=== PATIENT | male | born 1950 | race Caucasian/White ===

== ENCOUNTER 2021-04-19 16:54 | Outpatient (CLI) | payer MEDICARE, SELFPAY ==
--- NOTE | ~2021-04-19 | XR_ITS ---
EXAMINATION: XR wrist RT min 3V DATE: 04/19/2021 17:24 INDICATION: Right wrist pain. TECHNIQUE: 4 views of right wrist were obtained. COMPARISON: None. FINDINGS: Bone alignment is normal. No fracture. There is moderate osteoarthritis of distal radioulna r joint. There is severe osteoarthritis of radiolunate joint and triscaphe joint and mild osteoarthri tis of first carpometacarpal joint. IMPRESSION: 1. Polyarticular osteoarthritis. Reviewed, dictated and finalized at location A.
--- NOTE | ~2021-04-19 | XR_ITS ---
EXAMINATION: XR wrist LT min 3V DATE: 04/19/2021 17:24 INDICATION: Left wrist pain. TECHNIQUE: 4 views of left wrist were obtained. COMPARISON: None. FINDINGS: Bone alignment is normal. No fracture. There is mild osteoarthritis of distal radioulnar lorenzo int and severe osteoarthritis of first carpometacarpal joint. There is a suture anchor in first proxi mal phalanx. There are loose bodies in first carpometacarpal joint. IMPRESSION: 1. Polyarticular osteoarthritis with loose bodies in first carpometacarpal joint. Reviewed, dictated and finalized at location A. IMPRESSION: 1. Polyarticular osteoarthritis with loose bodies in first carpometacarpal join t.
== END 2021-04-19 16:55 | disposition home or self-care (01) ==
LOC: ANHIMG 17:02
PROVIDERS: PCP Plastic Surgery; Visit Provider Plastic Surgery
DX: M19.031 Primary osteoarthritis, right wrist (principal); M19.032 Primary osteoarthritis, left wrist; M24.032 Loose body in left wrist
CPT/HCPCS: 73110

== ENCOUNTER 2021-05-02 12:26 | Outpatient (CLI) | payer MEDICARE, SELFPAY ==
--- NOTE | ~2021-05-02 | XR_ITS ---
EXAMINATION: XR joint inject/asp add, XR joint inject/asp w image DATE: 05/02/2021 13:34 INDICATION: Osteoarthritis with right wrist pain TECHNIQUE: A time-out was performed to verify the patient's name, date of , and procedure to claudio crowe performed. The procedure including the risks, benefits, and alternatives was discussed with the pat ient. Risks discussed included bleeding and infection. The patient understood the risks and agreed to proceed. The skin overlying the radial aspect of the right carpus was prepped and draped in usual s terile fashion. Attention was first turned to the right wrist joint. Anesthetic was administered with 1% lidocaine subcutaneously over the radioscaphoid articulation. A 25 G needle was advanced under fl uoroscopic guidance into the joint. Injection of 1 mL of Omnipaque 240 confirmed intra-articular posi tion of the needle. Subsequently, injectate consisting of 1 mL of the solution of 6 mg of betamethas one was instilled. Washout of contrast was seen confirming intra-articular administration. The needle was removed and attention turned to the triscaphe joint. Additional subcutaneous 1% lidocaine was ut ilized for local anesthesia. A 20 5G needle was advanced under fluoroscopic guidance into the joint. Injection of 1 mL of Omnipaque 240 was injected confirming intra-articular position of the needle. Garcia bsequently injectate consisting of an additional 1 mm of a solution of 6 mg prednisone was instilled. The needle was removed and sterile bandages applied at the sites of both injections. There were no i mmediate complications. Fluoroscopy exposure time was 0.15 minutes. The total number of images was 4. Total DAP was 0.048 mGycm^2. FINDINGS: Real-time fluoroscopy demonstrates the needle and contrast in the radiocarpal joint. Subseq uent images demonstrate the needle and contrast in the triscaphe joint. Small amount of contrast from the triscaphe joint extends into the midcarpal and first carpal metacarpal joints. Patient's pain pr ior to procedure:3/10. Patient's pain following the procedure: 0/10. IMPRESSION: 1. Successful right radiocarpal joint injection of steroid. 2. Successful right triscaphe joint injection of steroid. Reviewed, dictated and finalized at location A. IMPRESSION: 1. Successful right radiocarpal joint injection of steroid. 2. Successful right triscaphe joint injection of steroid.
== END 2021-05-02 12:27 | disposition home or self-care (01) ==
LOC: ANHIMG 12:32
PROVIDERS: PCP Plastic Surgery; Visit Provider Plastic Surgery
DX: M19.031 Primary osteoarthritis, right wrist (principal)
CPT/HCPCS: 20605; 77002; J0702; Q9966

== ENCOUNTER 2021-06-28 10:14 | Outpatient (CLI) | payer MEDICARE, SELFPAY ==
--- NOTE | 2021-06-28 12:00 | NEURO_ITS ---
Impression: # Complains of pain and numbness of hands, right more than left. # No Carpal Tunnel Syndrome # Bilateral ulnar neuropathy across the elbows, left more than right. # Needle/EMG exam mildly abnormal. # Incidental higher involvement (neck) needs to be ruled out. Nerve Conduction Studies Anti Sensory Summary Table Stim Site NR Peak (ms) P-T Amp (?V) Site1 Site2 Delta-P (ms) Dist (cm) Hermelindo (m/s) Left Median Anti Sensory (2-3nd Digit) Wrist 3.5 37.6 Wrist 2-3nd Digit 3.5 14.0 40 Wrist 3.7 42.8 Wrist 2-3nd Digit 3.5 14.0 40 Right Median Anti Sensory (2-3nd Digit) Wrist 3.4 19.5 Wrist 2-3nd Digit 3.4 14.0 41 Wrist 3.6 12.3 Wrist 2-3nd Digit 3.4 14.0 41 Left Radial Anti Sensory (Base 1st Digit) Wrist 2.3 20.2 Wrist Base 1st Digit 2.3 0.0 Right Radial Anti Sensory (Base 1st Digit) Wrist 2.5 18.2 Wrist Base 1st Digit 2.5 0.0 Left Ulnar Anti Sensory (5th Digit) Wrist 3.6 31.3 Wrist 5th Digit 3.6 14.0 39 Right Ulnar Anti Sensory (5th Digit) Wrist 3.2 27.2 Wrist 5th Digit 3.2 14.0 44 Motor Summary Table Stim Site NR Onset (ms) O-P Amp (mV) Site1 Site2 Delta-0 (ms) Dist (cm) Hermelindo (m/s) Left Median Motor (Abd Poll Brev) Wrist 3.1 2.4 Elbow Wrist 5.4 31.0 57 Elbow 8.5 1.8 Right Median Motor (Abd Poll Brev) Wrist 3.8 5.4 Elbow Wrist 5.1 30.0 59 Elbow 8.9 3.8 Left Ulnar Motor (Abd Dig Minimi) Wrist 2.7 2.5 A Elbow Wrist 6.2 31.0 50 A Elbow 8.9 2.7 B Elbow Wrist 4.6 26.0 57 B Elbow 7.3 2.7 Right Ulnar Motor (Abd Dig Minimi) Wrist 2.7 4.0 A Elbow Wrist 5.7 31.0 54 A Elbow 8.4 2.5 B Elbow Wrist 4.1 23.0 56 B Elbow 6.8 2.4 F Wave Studies NR F-Lat (ms) L-R F-Lat (ms) Left Median (Mrkrs) (Abd Poll Brev) 30.16 0.70 Right Median (Mrkrs) (Abd Poll Brev) 30.86 0.70 Left Ulnar (Mrkrs) (Abd Dig Min) 30.95 0.82 Right Ulnar (Mrkrs) (Abd Dig Min) 31.77 0.82 EMG Side Muscle Nerve Root Ins Act Fibs Amp Dur Recrt Comment Right 1stDorInt Ulnar C8-T1 Nml Nml Nml >12ms Nml Right Ext Indicis Radial (Post Int) C7-8 Nml Nml Nml Nml Nml Right Ext Digitorum Radial (Post Int) C7-8 Nml Nml Nml Nml Nml Right BrachioRad Radial C5-6 Nml Nml Nml Nml Nml Right PronatorTeres Median C6-7 Nml Nml Nml Nml Nml Right Abd Poll Brev Median C8-T1 Nml Nml Nml Nml Nml Left 1stDorInt Ulnar C8-T1 Nml Nml Nml >12ms Nml Left Ext Indicis Radial (Post Int) C7-8 Nml Nml Nml Nml Nml Left Ext Digitorum Radial (Post Int) C7-8 Nml Nml Nml Nml Nml Left BrachioRad Radial C5-6 Nml Nml Nml Nml Nml Left PronatorTeres Median C6-7 Nml Nml Nml Nml Nml Left Abd Poll Brev Median C8-T1 Nml Nml Nml Nml Nml Right ABD Dig Min Ulnar C8-T1 Nml Nml Nml >12ms Nml Left ABD Dig Min Ulnar C8-T1 Nml Nml Nml >12ms Nml Right Biceps Musculocut C5-6 Nml Nml Nml Nml Nml Right Triceps Radial C6-7-8 Nml Nml Nml Nml Nml Right Deltoid Axillary C5-6 Nml Nml Nml Nml Nml Left Biceps Musculocut C5-6 Nml Nml Nml Nml Nml Left Triceps Radial C6-7-8 Nml Nml Nml Nml Nml Left Deltoid Axillary C5-6 Nml Nml Nml Nml Nml MTDD
== END 2021-06-28 10:15 | disposition home or self-care (01) ==
LOC: ANHNEURO 10:15
PROVIDERS: PCP Family Medicine; Visit Provider Plastic Surgery
DX: R53.1 Weakness (principal); R20.0 Anesthesia of skin; G56.23 Lesion of ulnar nerve, bilateral upper limbs; R94.131 Abnormal electromyogram [EMG]
CPT/HCPCS: 95886; 95911

== ENCOUNTER 2022-07-27 08:04 | Outpatient (CLI) | payer MEDICARE, SELFPAY ==
--- NOTE | ~2022-07-27 | US_ITS ---
EXAMINATION: US aorta [facility] DATE: 07/27/2022 09:00 INDICATION: Encounter for screening for cardiovascular disorder, prior tobacco use TECHNIQUE: Grayscale, color Doppler, and pulsed Doppler images of the aorta and common iliac arteries were obtained. COMPARISON: 01/19/2011 FINDINGS: Maximum vascular dimensions are as follows: Proximal aorta: 1.6 cm Mid aorta: 1.7 cm Distal aorta: 1.9 cm Right common iliac artery: 1.5 cm Left common iliac artery: 1.3 cm There is no evidence of abdominal aortic aneurysm. IMPRESSION: 1. No sonographic evidence of abdominal aortic aneurysm. Reviewed, dictated and finalized at location B. ILE MACHINE OPERATOR
== END 2022-07-27 08:05 | disposition home or self-care (01) ==
PROVIDERS: PCP Family Medicine; Visit Provider Physician Assistant
DX: Z13.6 Encounter for screening for cardiovascular disorders (principal)
CPT/HCPCS: 76706

== ENCOUNTER 2023-06-07 05:56 | Day surgery (SDC) | payer MEDICARE, SELFPAY ==
[2023-06-07 06:30] VITALS: BMI 23.8
[2023-06-07 06:32] VITALS: BP 155/90; PULSE 78; RESP 18; TEMP 36.9; O2SAT 99
--- NOTE | 2023-06-07 07:10 | WPDANESEPPF ---
Anes - Initial Pre Proc Eval Procedure: Operation Date: 06/07/23 07:30 Proposed Procedures p Diagnostic Colonoscopy - Adithya De La Torre MD Date/Time: 06/07/23 07:10 Surgeon: Adithya De La Torre MD Pre Op Diagnosis: Other fecal abnormalities Patient Data Age: 73 Gender: M Height: 1.83 m Weight: 79.8 kg Last Vital Signs Temp 36.9 C 06/07/23 06:32 Pulse 78 06/07/23 06:32 Resp 18 06/07/23 06:32 BP 155/90 H 06/07/23 06:32 Pulse Ox 99 06/07/23 06:32 O2 Del Method Room Air 06/07/23 06:32 Allergies Allergy/AdvReac Type Severity Reaction Status Date / Time Sulfa (Sulfonamide Allergy Unknown Unknown Verified 06/07/23 06:22 Antibiotics) finasteride AdvReac Severe nose Verified 06/07/23 06:22 bleeds Home Medications Medication Instructions Recorded Confirmed Type rosuvastatin 10 mg tablet See Rx Instructions .Route 10/12/22 05/23/23 Rx .COMPLEX #90 tabs sodium,potassium,mag sulfates 17.5 See Rx Instructions PO .COMPLEX 02/20/23 05/23/23 Rx gram-3.13 gram-1.6 gram oral soln #354 mL (Suprep Bowel Prep Kit) tamsulosin 0.4 mg capsule See Rx Instructions .Route 03/30/23 05/23/23 Rx .COMPLEX #180 caps vitamin B complex 1 cap PO DAILY 05/23/23 05/23/23 History Patient hx anesthesia problems: none Family hx anesthesia problems: none Results Review: All pre-operative results and documents have been reviewed as part of the pre-operative evaluation. [facility] Past Medical History Medical History Acute non-recurrent maxillary sinusitis Arthralgia of knee, left Trigger finger (acquired) Surgical History Surgical History H/O knee surgery Right knee H/O wrist surgery Right wrist History of total left knee replacement Family History Family History Father Acute myocardial infarction, Onset Age: 69 Sibling Acute myocardial infarction, Onset Age: 49 Social History Social History Smoking status: Former smoker Alcohol intake: current Drinks per week: 10 Substance use type: does not use Lack of Transportation: No Lack of Food: Never True Current Housing: I Have Housing Concerned About Future Housing: No Difficulty Paying Gas/Electric Bills: No Difficulty Paying for Meds: No Currently Unemployed: No Education: Bachelor's Degree Difficulty w/ Childcare or Family Care: No Living arrangements: with family Spiritual care concerns: No Anes - Eval Final PreProcedure Day of Procedure 06/07/23 07:10 Patient weight: normal Heart: regular rate and rhythm Lungs: clear to auscultation Airway: Mallampati scale class III Neurological: alert and oriented Last oral intake: >/= 8 hours ASA classification: III Emergent: no Anesthetic plan: proceed Anesthesia type and monitoring: general GIVS and standard monitoring Results Review: All pre-operative results and documents have been reviewed as part of the pre-operative evaluation. Informed Consent: The patient's anesthetic plan and its attendant risks and benefits were discussed with the patient/family/POA. Questions were solicited and answers provided to the satisfaction of the patient/family/POA.
[2023-06-07] MEDS: LACTATED RINGERS 1,000 ML 150 ML IV CONT (07:12)
--- NOTE | 2023-06-07 07:36 | PM.HPGS ---
History of Present Illness History of Present Illness Consent: Risks, benefits, and alternatives have been discussed and questions answered. Patient agrees to proceed with procedure. Chief complaint: positive cologuard Narrative: Lorenzo Ward is a 73 year old male presents for EGD. Patient was found to have positive Cologuard test. Patient's current weight appetite and bowel movements are normal. Patient denies abdominal pain. He has had no bleeding. Family history noncontributory. Review of Systems Review of Systems: Review of Systems noncontributory. [facility] Past Medical History Medical History Acute non-recurrent maxillary sinusitis Arthralgia of knee, left Trigger finger (acquired) Surgical History Surgical History H/O knee surgery Right knee H/O wrist surgery Right wrist History of total left knee replacement Family History Family History Father Acute myocardial infarction, Onset Age: 69 Sibling Acute myocardial infarction, Onset Age: 49 Social History Social History Smoking status: Former smoker Alcohol intake: current Drinks per week: 10 Substance use type: does not use Lack of Transportation: No Lack of Food: Never True Current Housing: I Have Housing Concerned About Future Housing: No Difficulty Paying Gas/Electric Bills: No Difficulty Paying for Meds: No Currently Unemployed: No Education: Bachelor's Degree Difficulty w/ Childcare or Family Care: No Living arrangements: with family Spiritual care concerns: No Meds Home Medications and Allergies Home Medications Medication Instructions Recorded Confirmed Type rosuvastatin 10 mg tablet See Rx Instructions .Route 10/12/22 05/23/23 Rx .COMPLEX #90 tabs sodium,potassium,mag sulfates 17.5 See Rx Instructions PO .COMPLEX 02/20/23 05/23/23 Rx gram-3.13 gram-1.6 gram oral soln #354 mL (Suprep Bowel Prep Kit) tamsulosin 0.4 mg capsule See Rx Instructions .Route 03/30/23 05/23/23 Rx .COMPLEX #180 caps vitamin B complex 1 cap PO DAILY 05/23/23 05/23/23 History Allergies Allergy/AdvReac Type Severity Reaction Status Date / Time Sulfa (Sulfonamide Allergy Unknown Unknown Verified 06/07/23 06:22 Antibiotics) finasteride AdvReac Severe nose Verified 06/07/23 06:22 bleeds Vital Signs Vital Signs - 24 hr 06/07/23 06:32 Temperature 98.5 F Pulse Rate 78 Respiratory Rate 18 Blood Pressure 155/90 H Pulse Oximetry 99 Oxygen Delivery Room Air Exam Narrative: Physical exam reveals patient to be alert. Vital signs stable. HEENT are unremarkable. Patient is anicteric. Lungs is are clear to auscultation and percussion is without murmur or extra sounds. Abdomen bowel sounds are present soft nontender with no organomegaly. Digital external rectal exam normal. Assessment and Plan Assessment and plan (1) Positive colorectal cancer screening using Cologuard test: Code(s): R19.5 - Other fecal abnormalities Status: Acute Assessment and Plan: Patient presents for colonoscopy to evaluate positive Cologuard test.
[2023-06-07 07:58] VITALS: BP 97/72; PULSE 72; RESP 16; O2SAT 99
[2023-06-07 08:08] VITALS: BP 137/83; PULSE 59; RESP 14; O2SAT 99
[2023-06-07 08:18] VITALS: BP 134/91; PULSE 63; RESP 15; O2SAT 99
--- NOTE | 2023-06-07 09:14 | WPDANESPN ---
Anes - Prog Note Post-Op Date/Time: 06/07/23 09:14 Cardiovascular status: normal Respiratory status: normal Airway patency: baseline Mental status: baseline Post-Op hydration status: normal Vital Signs: Last Vital Signs Temp 36.9 C 06/07/23 06:32 Pulse 63 06/07/23 08:18 Resp 15 06/07/23 08:18 BP 134/91 H 06/07/23 08:18 Pulse Ox 99 06/07/23 08:18 O2 Del Method Room Air 06/07/23 08:18 Pain Score (VAS): 0 I/O: Intake & Output 06/06/23 06/07/23 06/07/23 23:59 07:59 15:59 Intake Total 600 Balance 600 Patient Feedback: Patient satisfied with anesthetic care.
== END 2023-06-07 08:23 | disposition home or self-care (01) ==
PROVIDERS: PCP Family Medicine; Visit Provider Internal Medicine Gastroenterology
PROC: 0DJD8ZZ Inspection of Lower Intestinal Tract, Via Natural or Artificial Opening Endoscopic (ICD-10-PCS; CPT 45378; principal; 2023-06-07 07:30)
DX: K92.1 Melena (principal); K64.8 Other hemorrhoids
CPT/HCPCS: 45378

== ENCOUNTER 2024-01-29 16:10 | Observation (INO) | payer MEDICARE, SELFPAY ==
[2024-01-29] VITALS (13 sets, daily range): BP systolic 129–157; BP diastolic 82–97; PULSE 69–84; RESP 11–19; TEMP 36.4; O2SAT 97–100
--- NOTE | ~2024-01-29 | XR_ITS ---
EXAMINATION: XR chest 2V Exam Date/Time: 01/29/2024 16:55 CDT HISTORY: chest pain Comparison: None. RESULT: Lines, tubes, and devices: Soft tissue anchors in the right glenoid. Lungs and pleura: Streaky bibasilar scar/atelectasis, otherwise clear. Cardiomediastinal silhouette: Stable. Other: No acute osseous or upper abdominal finding. IMPRESSION: No acute cardiopulmonary process. Reviewed, dictated and finalized at location K.
--- NOTE | 2024-01-29 16:11 | ECG_ITS ---
SEE SCANNED COPY FOR CONFIRMED REPORT MTDD
[2024-01-29] MEDS: ASPIRIN 81 MG CHEWABLE TABLET 324 MG PO (16:39)
[2024-01-29 16:41] LABS: Basophils Percent Auto 0.5 % (0.2-1.2); Eosinophils Absolute Auto 0.2 K/mm3 (0-0.3); Eosinophils Percent Auto 2.6 % (0-4.4); Hematocrit 39.2 % (42.0-52.0); Hemoglobin 13.4 g/dL (14.0-18.0); Immature Granulocyte Absolute 0.04 K/mm3 (0.00-0.031); Immature Granulocyte Percent A 0.7 % (0-0.5); Lymphocytes Absolute Auto 1.34 K/mm3 (0.9-3.2); Mean Corpuscular HGB Conc 34.2 g/dl (32-36); Mean Corpuscular Hemoglobin 34.9 pg (26-34); Mean Corpuscular Volume 102.1 fl (80-100); Mean Platelet Volume 9.7 fl (7.4-10.4); Monocytes Absolute Auto 0.9 K/mm3 (0.1-0.6); Monocytes Percent Auto 15.5 % (2.6-8.5); Neutrophils Absolute Auto 3.6 K/mm3 (1.3-6.7); Neutrophils Percent Auto 58.7 % (45.5-73.1); Platelet Count Result 210 k/mm3 (150-375); Red Blood Count 3.84 M/mm3 (4.6-6.20); Red Cell Distribution Width 13.1 % (11.5-14.5); White Blood Count 6.1 K/mm3 (4.5-10.0)
[2024-01-29] MEDS: NITROGLYCERIN SL 0.4 MG TABLET SUBLINGUAL (16:41)
[2024-01-29 16:52] LABS: Partial Thromboplastin Time 28.5 Seconds (22.3-36.8); Prothrombin Time 14.1 Seconds (11.1-14.7)
--- NOTE | 2024-01-29 16:54 | PC.NURSE ---
1641: Pt given 0.4mg ASA sublingual 1646: Pt given 2nd dose of 0.4mg ASA sublingual after reporting chest pain still present 1651: Pt reports chest pain resolved, EDP made aware
[2024-01-29 16:55] LABS: Alanine Aminotransferase 25 U/L (6-50); Albumin Level 4.6 g/dL (3.5-5.1); Alkaline Phosphatase 72 U/L (38-126); Anion Gap 9 mmol/L (4-12); Aspartate Amino Transferase 42 U/L (17-59); Bilirubin,Total 0.6 mg/dL (0.2-1.3); Blood Urea Nitrogen 17 mg/dL (9-20); Calcium 9.7 mg/dL (8.4-10.2); Carbon Dioxide 28 mmol/L (22-30); Chloride 104 mmol/L (98-107); Estimated CRCL calculation 66 ml/min; Estimated Glomerular Filt Rate > 60; Glucose 101 mg/dL (65-110); Lipase 47 U/L (23-300); Potassium 4.4 mmol/L (3.4-5.0); Sodium 141 mmol/L (137-145)
[2024-01-29 17:11] LABS: Troponin I 0.417 ng/mL (0.000-0.034)
[2024-01-29] MEDS: NITROGLYCERIN OINTMENT 1 INCH DOSE TRANSDERM ×2 (17:24→23:36)
--- NOTE | 2024-01-29 17:38 | ED.GENADULT ---
HPI - General Adult General Chief complaint: Chest Pain Stated complaint: chest pain Time Seen by Provider: 01/29/24 16:29 History of Present Illness HPI narrative: this 73-year-old gentleman who presents emergency department with chief complaint of chest pain. Patient reports that several days ago he had discomfort started in the left side of his chest radiated to his left arm. He patient reports the pain went away and reports that whenever he exerts himself self he has been having discomfort as well. The patient reports he has had a stress test in the past was negative reports that today he started having discomfort again and was still continuing but not as bad as it was. The patient does report that he has family history for cardiac disease Related Data Home Medications Medication Instructions Recorded Confirmed vitamin B complex 1 cap PO DAILY 05/23/23 07/19/23 Allergies Allergy/AdvReac Type Severity Reaction Status Date / Time Sulfa (Sulfonamide Allergy Unknown Unknown Verified 01/29/24 16:35 Antibiotics) finasteride AdvReac Severe nose Verified 01/29/24 16:35 bleeds Review of Systems Review of Systems: A 10 system review of systems was completed on the patient and is negative except for what is stated in the HPI. Nursing and ancillary documentation was reviewed. [facility] Past Medical History Medical History Acute non-recurrent maxillary sinusitis Arthralgia of knee, left Trigger finger (acquired) Surgical History Surgical History H/O knee surgery Right knee H/O wrist surgery Right wrist History of total right knee replacement Family History Family History Father Acute myocardial infarction, Onset Age: 69 Sibling Acute myocardial infarction, Onset Age: 49 Social History Social History Smoking status: Former smoker Alcohol intake: current Drinks per week: 10 Substance use: never Substance use type: does not use Lack of Transportation: No Lack of Food: Never True Current Housing: I Have Housing Concerned About Future Housing: No Difficulty Paying Gas/Electric Bills: No Difficulty Paying for Meds: No Currently Unemployed: No Education: Bachelor's Degree Difficulty w/ Childcare or Family Care: No Living arrangements: with family Spiritual care concerns: No Exam Narrative: GENERAL: Well-appearing, well-nourished, and in no acute distress. HEAD: Normocephalic, atraumatic. EYES: PERRLA and EOMI. ENT: Nares clear, no rhinorrhea or epistaxis. Mucous membranes moist. NECK: Supple. CHEST: Clear to auscultation. No respiratory distress. HEART: Regular rate and rhythm. No murmur heard. Normal peripheral pulses. ABDOMEN: Soft, nontender, nondistended, normal active bowel sounds. EXTREMITIES: Normal range of motion. No edema. SKIN: Warm, dry, no rash. NEURO: No focal deficits. Alert and oriented x3. PSYCH: Normal mood and affect. Course Vital Signs Vital signs: Vital Signs Temperature 36.4 C 01/29/24 16:20 Pulse Rate 77 01/29/24 16:20 Respiratory Rate 16 01/29/24 16:20 Blood Pressure 146/87 H 01/29/24 16:20 Pulse Oximetry 100 01/29/24 16:20 Oxygen Delivery Room Air 01/29/24 16:20 Temperature 36.4 C 01/29/24 16:24 Pulse Rate 76 01/29/24 16:51 Respiratory Rate 19 01/29/24 16:51 Blood Pressure 129/83 01/29/24 16:51 Pulse Oximetry 97 01/29/24 16:51 Oxygen Delivery Room Air 01/29/24 16:30 Medical Decision Making [facility] Narrative Medical decision making narrative: differential diagnosis includes ACS, STEMI, NSTEMI, noncardiac chest pain EKG showed ST depression present in leads 1 to and V4 through V6 there was less than half a mm e
[2024-01-29] MEDS: HEPARIN SOD/D5W 100 UNITS/ML 25,000 UNITS/250 ML BAG 10 UNITS IV CONT (17:50)
[2024-01-29] MEDS: HEPARIN SODIUM 5,000 UNITS/ML VIAL 4000 UNITS IV PUSH (17:52)
[2024-01-29 17:58] LABS: Basophils Percent Auto 0.6 % (0.2-1.2); Eosinophils Absolute Auto 0.1 K/mm3 (0-0.3); Eosinophils Percent Auto 2.2 % (0-4.4); Hematocrit 36.4 % (42.0-52.0); Hemoglobin 12.4 g/dL (14.0-18.0); Immature Granulocyte Absolute 0.03 K/mm3 (0.00-0.031); Immature Granulocyte Percent A 0.6 % (0-0.5); Lymphocytes Absolute Auto 1.27 K/mm3 (0.9-3.2); Lymphocytes Percent Auto 23.7 % (18.3-44.2); Mean Corpuscular HGB Conc 34.1 g/dl (32-36); Mean Corpuscular Volume 102.8 fl (80-100); Mean Platelet Volume 9.9 fl (7.4-10.4); Monocytes Absolute Auto 0.8 K/mm3 (0.1-0.6); Monocytes Percent Auto 14.4 % (2.6-8.5); Neutrophils Absolute Auto 3.1 K/mm3 (1.3-6.7); Neutrophils Percent Auto 58.5 % (45.5-73.1); Platelet Count Result 204 k/mm3 (150-375); Red Blood Count 3.54 M/mm3 (4.6-6.20); White Blood Count 5.4 K/mm3 (4.5-10.0)
[2024-01-29 18:18] LABS: Prothrombin Time 14.2 Seconds (11.1-14.7)
[2024-01-29 18:19] LABS: Partial Thromboplastin Time 28.2 Seconds (22.3-36.8)
--- NOTE | 2024-01-29 19:09 | ADMGEN ---
This patient, Lorenzo Ward, was admitted to IMU Room 210-01. Patient/family oriented to hospital policies and general routines including ID bracelet, bed and alarms, visiting hours, pain management, procedures, bathroom and other care routines, personal items, smoking policy, room service/diet, and visiting hours. Information on how to activate the Rapid Response Team has been discussed. Patient/Family are encouraged to report perceived risks to care and to ask questions if they do not understand what they are told or what they should do.
[2024-01-29 20:35] LABS: Troponin I 0.644 ng/mL (0.000-0.034)
--- NOTE | 2024-01-29 22:30 | PM.IMHP ---
H&P: HPI History of Present Illness Date/Time: 01/29/24 21:00 Chief Complaint: Chest pain. Narrative: This is a very pleasant, active, and quite healthy 73-year-old gentleman who presented to the emergency department via private vehicle for evaluation of chest pain. He is a patient of Dr. Peña Pryor and saw him for a yearly follow-up earlier this month. Blood pressures were noted to be elevated and are being monitored for now. The patient is on rosuvastatin for findings of coronary artery calcifications and atherosclerotic calcifications of the aorta which were seen on a CT scan in April 2010. He has a strong family history for coronary artery disease; brother at age 45 of an IN and dad at age 59 of an IN. He has had 2 or 3 stress tests over the years, the last being more than 7 years ago, and they have been normal. He has never experienced chest pain before this weekend. While outside cutting grass he developed left-sided chest pain radiating into the shoulder associated with shortness of breath and lightheadedness while mowing with a self-propelled push lawnmower. Symptoms resolved with rest but seem to occur shortly after starting tomorrow again. It took him about 2 hours to mow the lawn which is a lot longer than usual and when he was finished he went inside to rest and did not do much with the rest of the day. He had not had any recurrent issues until today when he was cleaning off his pool cover. Once again the symptoms resolved with rest and he came in for evaluation. He denies nausea, vomiting, sweats, syncope, near syncope, pleuritic pain, palpitations, sensations of racing heart, edema, and calf pain. In the ED: Blood pressure was 146/87 on arrival. He is in a sinus rhythm. EKG shows ST depressions in 1, 2, and V4 through 6. Initial troponin was 0.417. CBC showed a mild macrocytic anemia and the rest of his labs were really unremarkable. Chest x-ray showed no acute cardiopulmonary disease. He was given aspirin 324 mg, 2 sublingual nitroglycerin, and he has been started on a heparin drip. He is being admitted in this setting for close monitoring and Cardiology consultation. Review of Systems Review of Systems: 12 systems were reviewed and are negative except for as per HPI. [facility] Past Medical History Medical History (Updated 01/29/24 @ 22:48 by Yahaira Collins PA-C) Atherosclerotic heart disease of [place] coronary artery with unspecified angina pectoris Benign prostatic hyperplasia Vitamin B12 deficiency Surgical History Surgical History (Updated 01/29/24 @ 22:46 by Yahaira Collins PA-C) History of arthroscopy of both knees History of arthroscopy of both shoulders History of total right knee replacement Family History Family History Father Acute myocardial infarction, Onset Age: 69 Sibling Acute myocardial infarction, Onset Age: 49 Social History Social History (Updated 01/29/24 @ 22:46 by Yahaira Collins PA-C) Social History: Surrogate medical decision maker: Yesenia Ward, spouse. Code status: Full code. Smoking status: Former smoker Alcohol intake: current Drinks per week: 14 Substance use: never Substance use type: does not use Do You Feel Safe in your Home?: Yes Lack of Transportation: No Lack of Food: Never True Current Housing: I Have Housing Concerned About Future Housing: No Difficulty Paying Gas/Electric Bills: No Difficulty Paying for Meds: No Currently Unemployed: No Education: Bachelor's Degree Difficulty w/ Childcare or Family Care: No Living arrangements: with family Occupation/Education: retired Spiritual care concerns: No Meds Home Medications and Allergies Home Medications Medication Instructions Recorded Confirmed Type vitamin B complex 1 cap PO DAILY 05/23/23 01/29/24 History rosuvastatin 10 mg tablet 10 mg PO QHS 01/29/24 01/29/24
[2024-01-29] MEDS: ALPRAZolam (*CRX) 0.25 MG TABLET PO (22:45)
[2024-01-29] MEDS: ROSUVASTATIN 10 MG TABLET PO (23:36)
[2024-01-29] MEDS: METOPROLOL TARTRATE 25 MG TABLET PO (23:36)
[2024-01-30] VITALS (19 sets, daily range): BP systolic 109–166; BP diastolic 66–92; PULSE 62–81; RESP 12–18; TEMP 36.1–36.4; O2SAT 97–100
--- NOTE | 2024-01-30 | ECHO_ITS ---
Patient Info Name: Lorenzo Ward Age: 73 years : 1950 Gender: Male Ht: 72 in Wt: 185 lbs BSA: 2.07 m2 HR: 72 bpm BP: 109 / 73 mmHg Heart Rhythm: Sinus Rhythm Technical Quality: Fair Exam Date: 01/30/2024 2:38 PM Exam Location: Echo Lab Patient Status: Inpatient Admit Date: 01/29/2024 Staff Ordering Physician: Abilio Camp MD (kaiser/laci) Ash Collector: Aubree Ornelas RDCS Attending Provider: Elizabeth Mejia MD Referring Physician: Conrado AZUL; Exam Type: CA echo dop color flow w con Study Info Indications I21.4 - Non-ST elevation (NSTEMI) myocardial infarction Complete two-dimensional, color flow and Doppler transthoracic echocardiogram is performed with contrast to opacify the left ventricle and to improve the deliniation of the left ventricle endocardial borders. Contrast/Agitated Saline Contrast/Ag. Saline: Definity Amount: 1.00 ml IV Access Condition: patent with no signs of infiltration Summary 1. Left ventricular chamber dimension is normal. 2. Left ventricular systolic function is normal, estimated at 60-65%. 3. There is hypokinesis of the inferoseptum, anteroseptum. 4. The left ventricular diastolic function is grade I diastolic dysfunction. 5. Right ventricular systolic function is normal. 6. No significant valvular disease. Left Ventricle There is hypokinesis of the inferoseptum, anteroseptum. Left ventricular chamber dimension is normal. Left ventricular systolic function is normal, estimated at 60-65%. There is no increased left ventricular wall thickness. The left ventricular diastolic function is grade I diastolic dysfunction. Right Ventricle Right ventricular chamber dimension is normal. Right ventricular systolic function is normal. Left Atria Left atrial chamber dimension is normal. Right Atria Right atrial chamber dimension is normal. Atrial Septum Intact interatrial septum visualized by color flow imaging. Aortic Valve The aortic valve is probable trileaflet. There is no aortic valve stenosis. There is no aortic valve regurgitation. Pulmonic Valve The pulmonic valve is not well visualized. There is trace pulmonic regurgitation. Mitral Valve There is trace mitral valve regurgitation. Tricuspid Valve There is trace tricuspid valve regurgitation. Pericardium/Pleural There is no pericardial effusion. Inferior Vena Cava Normal inferior vena cava with >50% collapse upon inspiration consistent with normal right atrial pressure, 3 mmHg. Aorta The aortic root size at the sinus of Valsalva is normal. Tricuspid Valve Name Value Normal Estimated PAP/RSVP RA Pressure 3 mmHg <=5 Report Signatures Amended by Abilio Camp MD on 01/30/2024 16:39
[2024-01-30 00:36] LABS: Partial Thromboplastin Time 77.9 Seconds (22.3-36.8)
[2024-01-30 00:51] LABS: Iron 142 ug/dL (49-181); Percent Iron Saturation 43 % (20-50)
[2024-01-30 01:55] LABS: Folic Acid 19.2 ng/mL (2.76->20)
[2024-01-30 06:00] LABS: Basophils Percent Auto 0.9 % (0.2-1.2); Eosinophils Absolute Auto 0.2 K/mm3 (0-0.3); Eosinophils Percent Auto 6.5 % (0-4.4); Hemoglobin 12.2 g/dL (14.0-18.0); Immature Granulocyte Absolute 0.02 K/mm3 (0.00-0.031); Immature Granulocyte Percent A 0.6 % (0-0.5); Lymphocytes Percent Auto 35.2 % (18.3-44.2); Mean Corpuscular HGB Conc 33.9 g/dl (32-36); Mean Corpuscular Hemoglobin 34.7 pg (26-34); Mean Corpuscular Volume 102.3 fl (80-100); Mean Platelet Volume 9.7 fl (7.4-10.4); Monocytes Absolute Auto 0.6 K/mm3 (0.1-0.6); Monocytes Percent Auto 18.5 % (2.6-8.5); Neutrophils Absolute Auto 1.3 K/mm3 (1.3-6.7); Neutrophils Percent Auto 38.3 % (45.5-73.1); Platelet Count Result 177 k/mm3 (150-375); Red Blood Count 3.52 M/mm3 (4.6-6.20); Red Cell Distribution Width 13.2 % (11.5-14.5); White Blood Count 3.4 K/mm3 (4.5-10.0)
[2024-01-30] MEDS: NITROGLYCERIN OINTMENT 1 INCH DOSE TRANSDERM (06:07)
[2024-01-30 06:09] LABS: Anion Gap 9 mmol/L (4-12); Blood Urea Nitrogen 20 mg/dL (9-20); Carbon Dioxide 24 mmol/L (22-30); Chloride 108 mmol/L (98-107); Cholesterol 157 mg/dL (0-200); Estimated CRCL calculation 81 ml/min; Estimated Glomerular Filt Rate > 60; Glucose 99 mg/dL (65-110); HDL Direct 61 mg/dL; Magnesium 1.9 mg/dL (1.6-2.3); Potassium 3.8 mmol/L (3.4-5.0); Sodium 141 mmol/L (137-145); Triglycerides 95 mg/dL (<150)
[2024-01-30 06:14] LABS: Partial Thromboplastin Time 80.7 Seconds (22.3-36.8)
[2024-01-30 06:20] LABS: LDL Cholesterol Direct 85 mg/dL
--- NOTE | 2024-01-30 09:58 | PM.CNCAR ---
Assessment and Plan Assessment and plan (1) Acute non-ST elevation myocardial infarction (NSTEMI): Code(s): I21.4 - Non-ST elevation (NSTEMI) myocardial infarction Status: Acute Assessment and Plan: Recommend cardiac catheterization. Discussed procedure with the patient, including indication for the procedure, procedure details, risks vs benefits, alternative management options, etc. Patient agreeable to [facility]. Will plan on [facility] today. Continue Heparin drip, ASA 81mg once daily. Has been started on Metoprolol, continue. I will increase his Rosuvastatin from 10mg to 40mg. Further recommendations and plan pending results of [facility]. (2) Dyslipidemia: Code(s): E78.5 - Hyperlipidemia, unspecified Status: Acute Assessment and Plan: LDL 85. I will increase his Rosuvastatin from 10mg to 40mg. History of Present Illness History of Present Illness Consult date/time: 01/30/24 09:58 Requesting physician: Yahaira Collins PA-C Consult reason: Other (NSTEMI) Reason For Visit: NSTEMI,Chest Pain Narrative: This is a 73 year old male with hyperlipidemia who presented with chest pain. Patient reports he had an episode of left-sided chest pain with radiation to his left arm about 2 weeks ago while mowing his lawn. Chest pain at that time lasted for a while (he cannot recall exactly how long). Had shortness of breath with exertion. He is normally able to mow his lawn in 45 minutes, but it took him almost 2 hours to complete it at that time. Chest pain then resolved, however, he had recurrence of similar chest pain yesterday while cleaning his pool cover. Did not last as long as the episode 2 weeks ago. Currently chest pain free. Patient has known family history of heart disease. Brother from [place] at age 45. Father from [place] at age 59. Previous stress tests have been normal, but those were several years ago. EKG shows sinus rhythm, nonspecific STTW abnormality. Troponins of 0.417, 0.644, 0.820. CXR negative. He has been started on Heparin drip. Review of Systems Review of Systems: All systems reviewed & are unremarkable except as noted in HPI and below (HPI) [facility] Past Medical History Medical History Atherosclerotic heart disease of [place] coronary artery with unspecified angina pectoris Benign prostatic hyperplasia Vitamin B12 deficiency Surgical History Surgical History History of arthroscopy of both knees History of arthroscopy of both shoulders History of total right knee replacement Family History Family History Father Acute myocardial infarction, Onset Age: 69 Sibling Acute myocardial infarction, Onset Age: 49 Social History Social History Social History: Surrogate medical decision maker: Yesenia Ward, spouse. Code status: Full code. Smoking status: Former smoker Alcohol intake: current Drinks per week: 14 Substance use: never Substance use type: does not use Do You Feel Safe in your Home?: Yes Lack of Transportation: No Lack of Food: Never True Current Housing: I Have Housing Concerned About Future Housing: No Difficulty Paying Gas/Electric Bills: No Difficulty Paying for Meds: No Currently Unemployed: No Education: Bachelor's Degree Difficulty w/ Childcare or Family Care: No Living arrangements: with family Occupation/Education: retired Spiritual care concerns: No Meds Home Medications and Allergies Home Medications Medication Instructions Recorded Confirmed Type vitamin B complex 1 cap PO DAILY 05/23/23 01/29/24 History rosuvastatin 10 mg tablet 10 mg PO QHS 01/29/24 01/29/24 History tamsulosin 0.4 mg capsule 0.04 mg PO BID 01/29/24 01/29/24 History Allergies Allergy/AdvReac Type Severity Reaction Status Da
--- NOTE | 2024-01-30 11:27 | WPDMODSED ---
Moderate Sedation Note-Pt Data Patient Data Diagnosis: NSTEMI Present Complaint: NSTEMI Procedure to be performed/Plan: Coronary angiography, left heart cath, +/- PCI Allergies Allergy/AdvReac Type Severity Reaction Status Date / Time Sulfa (Sulfonamide Allergy Unknown Unknown Verified 01/29/24 16:35 Antibiotics) finasteride AdvReac Severe nose Verified 01/29/24 16:35 bleeds Home Medications Medication Instructions Recorded Confirmed Type vitamin B complex 1 cap PO DAILY 05/23/23 01/29/24 History rosuvastatin 10 mg tablet 10 mg PO QHS 01/29/24 01/29/24 History tamsulosin 0.4 mg capsule 0.04 mg PO BID 01/29/24 01/29/24 History Current Medications: Active Medications Aspirin (Aspirin 81 Mg Chewable Tablet) 81 mg PO DAILY@0800 [facility] Heparin Sodium (Porcine) (Heparin Sodium 5,000 Units/Ml Vial) 4,000 units IV PUSH PRN PRN PRN Reason: aPTT less than 55 seconds Heparin Sodium (Porcine) (Heparin Sodium 5,000 Units/Ml Vial) 3,500 units IV PUSH PRN PRN PRN Reason: aPTT 55 - 70 seconds Heparin Sodium/Dextrose (Heparin Sodium/D5w 100 Units/Ml) 25,000 units in 250 mls @ 10 mls/hr IV CONT .Q24H [facility]; Protocol Last Titration: 01/30/24 00:55 Dose: 1,000 units/hr, 10 mls/hr Metoprolol Tartrate (Metoprolol Tartrate 25 Mg Tablet) 25 mg PO Q12HR [facility] Last Admin: 01/29/24 23:36 Dose: 25 mg Morphine Sulfate (Morphine Sulfate (*Crx) 2 Mg/Ml Inj) 2 mg IV PUSH Q5M PRN PRN Reason: Pain Rated 4-6 Nitroglycerin (Nitroglycerin Ointment 1 Inch Dose) 1 inch TRANSDERM Q6HR [facility] Last Admin: 01/30/24 06:07 Dose: 1 inch Nitroglycerin (Nitroglycerin Sl 0.4 Mg Tablet) 0.4 mg SUBLINGUAL Q5MIN PRN PRN Reason: Chest Pain Rosuvastatin Calcium (Rosuvastatin 20 Mg Tablet) 40 mg PO QAM [facility] Tamsulosin HCl (Tamsulosin Hcl 0.4 Mg Capsule) 0.4 mg PO BID [facility] Vitamin B Complex (Vitamin B Complex Capsule) 1 cap PO DAILY LEONARDO Sedation/Anesthesia: No previous sedation/anesthesia problems (including family history). [facility] Past Medical History Medical History Atherosclerotic heart disease of [place] coronary artery with unspecified angina pectoris Benign prostatic hyperplasia Vitamin B12 deficiency Surgical History Surgical History History of arthroscopy of both knees History of arthroscopy of both shoulders History of total right knee replacement Family History Family History Father Acute myocardial infarction, Onset Age: 69 Sibling Acute myocardial infarction, Onset Age: 49 Social History Social History Social History: Surrogate medical decision maker: Yesenia Ward, spouse. Code status: Full code. Smoking status: Former smoker Alcohol intake: current Drinks per week: 14 Substance use: never Substance use type: does not use Do You Feel Safe in your Home?: Yes Lack of Transportation: No Lack of Food: Never True Current Housing: I Have Housing Concerned About Future Housing: No Difficulty Paying Gas/Electric Bills: No Difficulty Paying for Meds: No Currently Unemployed: No Education: Bachelor's Degree Difficulty w/ Childcare or Family Care: No Living arrangements: with family Occupation/Education: retired Spiritual care concerns: No Mod Sed Physical Exam Physical Exam Pre Procedural Exam: Normal: Appearance, Lungs, Heart Rate, Heart Rhythm, Neuro Exam, Abdomen, Extremities and Skin Hours since solid foods: 12 Hours since liquid intake: 8 Mallampati Classification: class II Internal Medicine - PN: Obj Da Vital Signs Vital Signs: Vital Signs - 24 hr 01/29/24 16:20 01/29/24 16:24 01/29/24 16:30 Temperature 36.4 C 36.4 C Pulse Rate 77 79 Respiratory Rate 16 15 Blood Pressure 146/87 H 145/97 H Pulse Oximetry 100 98 100 Oxygen Delivery Room
[2024-01-30 11:38] LABS: Hemoglobin A1C 5.1 % (<5.7)
--- NOTE | 2024-01-30 13:11 | WPDCARDPROC ---
Cardiac Cath Procedure Note Date of procedure:: 01/30/24 Performing physician:: CATHETERIZATION LABORATORY REPORT Procedure Date: 01/30/2024 Workers' Compensation Hearings Officer: Abilio Camp M.D., [facility]? Referring Physician: Abilio Camp M.D. ? Anesthesia: Versed and Fentanyl were ordered and given in my presence at 11:57, procedure ended at 12:44. Supervision of nurse monitored moderate sedation with Versed and Fentanyl was provided for 45 minutes. Total of Versed 1mg and Fentanyl 50mcg were administered by the Coiled Tubing Supervisor RN Princess Alcala. Pre-op Diagnosis: Coronary artery disease Post-op Diagnosis: 1. Significant two-vessel coronary artery disease involving the ostial LAD and proximal RCA. 2. Elevated left ventricular end-diastolic pressure of 23mmHg. Procedure(s): 1. Moderate sedation 2. Ultrasound-guided access of the right radial artery 3. Coronary angiography 4. Left heart cath 5. IVUS of the left main Access Site: Right radial artery Brief History and Clinical Indications: Patient is a 73 year old male with hyperlipidemia, family history of premature coronary artery disease, former smoker (quit 40 years ago) who is referred for [facility] for NSTEMI. All risks, benefits and alternatives to left heart catheterization with or without percutaneous coronary intervention was discussed at length with the patient. Risk of complications including but not limited to bleeding, infection, arrhythmia, stroke, worsening kidney function, blood loss, groin hematoma, limb loss, emergency coronary artery bypass grafting, and even were discussed with the patient and all questions were answered. The patient understood and wished to proceed. Time out called, patient name, date of , medical record number, allergies, procedure performed, identify Workers' Compensation Hearings Officer, patient and staff member concurred with accurate data, procedure carried on. Findings: LEFT HEART CATHETERIZATION FINDINGS: 1. Left main: The left main trifurcates into LAD, Ramus and LCX. Eccentric disease noted in the distal left main. IVUS shows the distal left main MLA is 10mm2. 2. Left anterior descending: The proximal-mid LAD is heavily calcified. The ostial LAD has significant obstructive hazy disease. 3. Ramus: Small caliber. No obstructive disease appreciated. 4. Left circumflex: The ostium of the LCX has angiographically moderate disease. Obtuse marginal branches have luminal irregularities. 5. Right coronary artery: The RCA is the dominant vessel. The RCA is a heavily calcified vessel. The proximal RCA has a calcific subtotal 99% stenosis. 6. Left ventricle: A. End-diastolic pressure 23 mmHg. B. LV gram deferred. C. No significant gradient across aortic valve on catheter pullback. Description of Procedure: Informed consent signed and placed in the chart. Patient transferred to labor utilization superintendent room. Prepped and draped in usual sterile fashion. 2% lidocaine injected subcutaneously in right wrist area. 22-gauge venipuncture catheter used to access the right radial artery under ultrasound guidance. 6-FR slender sheath placed in right radial artery. Nitroglycerine and Verapamil were given intraarterial through the sheath. Versacore wire advanced under fluoroscopy 5F Tig 4 diagnostic catheter engaged Left Main Coronary Artery. The Tig catheter kept engaging in the conus branch of RCA. Therefore, 5F FR 4 diagnostic catheter engaged in the Right Coronary Artery Multiple orthogonal angiogram obtained and reviewed 5F Pigtail diagnostic catheter crossed aortic valve to obtain LVEDP, LV angiogram deferred. Decided to IVUS the left main to better assess the extent of the distal left main disease. Angiomax bolus given. 6F CLS 3.0 guide catheter was used to intubate the left main. Initially attempted to pass 0.014 [place] coronary wire into the LAD, however, had difficulty crossing into the LAD, therefore, wire passed down the Ramus. IVUS catheter advanced, distal left main MLA is
[2024-01-30] MEDS: PERFLUTREN LIPID MICROSPHERES 1.5 ML VIAL DILUTED TO 10 ML TOTAL VOLUME IV PUSH (15:15)
--- NOTE | 2024-01-30 15:28 | IVDEFINITY ---
Prior to administration of IV Definity the patient was educated on the risks and benefits of the imaging enhancing agent including potential adverse side effects. The patient verbalized understanding. Allergies were verified. No exclusion criteria were identified and at least one of the following inclusion criteria were met: 1) physician request, 2) patient technically difficult to image (per the [place] [employer]chocardi[employer] guidelines of two or more segments not discernable within the apical view), or 3) questionable left ventricular function. ?
--- NOTE | 2024-01-30 15:40 | PM.DS ---
DS: Admitting Diagnosis Discharge Date 01/30/2024 Admitting Diagnosis Chest pain DS: Discharge Diagnosis Discharge Diagnosis (1) Non-ST elevation myocardial infarction (NSTEMI): Code(s): I21.4 - Non-ST elevation (NSTEMI) myocardial infarction Status: Acute Assessment and Plan: Pt on iv heparin drip Npo for heart cath today Pt will need to be transferred to [facility] for higher level of care for multivessel disease. (2) Elevated blood pressure reading: Code(s): R03.0 - Elevated blood-pressure reading, without diagnosis of hypertension Status: Acute (3) Macrocytic anemia: Code(s): D53.9 - Nutritional anemia, unspecified Status: Acute (4) Benign prostatic hyperplasia: Code(s): N40.0 - Benign prostatic hyperplasia without lower urinary tract symptoms Status: Acute DS: Summary Hospital Course Hospital Course: The patient presented to the emergency department for evaluation of left-sided chest pain with activity as detailed in HPI. Labs, imaging, EKG, and all reports were personally reviewed. He has exertional angina with elevated troponins and ischemic changes on EKG consistent with non STEMI. He received aspirin 324 mg in the ED and has been started on a heparin drip. He will be NPO after midnight for probable cardiac catheterization tomorrow. Start metoprolol tartrate 25 mg. Monitor blood pressures closely; may very well started antihypertensive depending on how he trends. Continue statin. Check iron studies, B12, and folate for evaluation of macrocytic anemia; he previously had a history of B12 deficiency. Continue tamsulosin and monitor p.r.n. bladder scan. Pt had heart cath next day showing . Left main: The left main trifurcates into LAD, Ramus and LCX. Eccentric disease noted in the distal left main. IVUS shows the distal left main MLA is 10mm2.? 2. Left anterior descending: The proximal-mid LAD is heavily calcified. The ostial LAD has significant obstructive hazy disease. 3. Ramus: Small caliber. No obstructive disease appreciated. 4. Left circumflex: The ostium of the LCX has angiographically moderate disease. Obtuse marginal branches have luminal irregularities. 5. Right coronary artery: The RCA is the dominant vessel. The RCA is a heavily calcified vessel. The proximal RCA has a calcific subtotal 99% stenosis. Pt will need to be transferred to [facility] for higher level of care for multivessel disease. Time Spent with Patient Time attestation: Total time spent providing and/or coordinating discharge services:40 minutes on day of dc Exam Narrative: General: Well-developed Respiratory: Lungs are clear to auscultation bilaterally. Cardiovascular: Regular rate and rhythm with S1-S2. No murmur, rub, or gallop. Gastrointestinal: Abdomen is soft, nontender, and nondistended with positive bowel sounds. Skin: Warm and dry. No rash or lesions on limited exam. Extremities: No cyanosis, clubbing, or edema. Radial and pedal pulses intact. Neurological: Alert. Cranial nerves 2-12 are grossly intact. No gross focal deficits to casual conversation. Psychiatric: Pleasant and cooperative with normal mood and affect. Judgment and insight intact. He is in good spirits. DS: Data Data Completed and Pending Labs on day of discharge: Labs from last 24 hours 01/30/24 01/30/24 01/30/24 05:54 05:51 00:14 WBC 3.4 L RBC 3.52 L Hgb 12.2 L Hct 36.0 L MCV 102.3 H MCH 34.7 H MCHC 33.9 RDW 13.2 Plt Count 177 MPV 9.7 Immature Gran % (Auto) 0.6 H Neut % (Auto) 38.3 L Lymph % (Auto) 35.2 Haines % (Auto) 18.5 H Eos % (Auto) 6.5 H Baso % (Auto) 0.9 Lymph # (Auto) 1.20 Haines # (Auto) 0.6 Eos # (Auto) 0.2 Baso # (Auto) 0.0 Abs Immat Gran (auto) 0.02 Absolute Neuts (auto) 1.3 Absolute Nucleated RBC 0.000 Nucleated RBC % 0.0 PT INR APTT 80.7 H 77.9 H Sodium 141 Potassium 3.8 Chloride 1
--- NOTE | 2024-01-30 16:28 | PC.NURSE ---
Being transferred to [facility], room 1255-A. Report called to JENNA Armstrong, along with this facility phone number, and patient spouse phone number. Denied further questions. Patient and spouse updated on room number and ambulance estimated time of arrival.
[2024-01-30] MEDS: SODIUM CHLORIDE 0.9% IV 1,000 ML 125 ML IV CONT (16:35)
[2024-01-30] MEDS: VITAMIN B COMPLEX CAPSULE 1 CAP PO (16:35)
[2024-01-30] MEDS: TAMSULOSIN HCL 0.4 MG CAPSULE PO ×2 (16:35→20:52)
[2024-01-30] MEDS: ASPIRIN 81 MG CHEWABLE TABLET PO (16:35)
[2024-01-30] MEDS: METOPROLOL TARTRATE 25 MG TABLET PO ×2 (16:35→20:52)
--- NOTE | 2024-01-30 18:06 | PM.TDS ---
Transfer Discharge Sum: Prov Provider Date of admission: 01/29/24 18:12 Primary care physician: Peña Pryor MD Admitting clinician: Elizabeth Mejia MD Consults: 01/29/24 17:36 Consult to Physician Routine Comment: Consulting Provider: Julio Cesar Aranda Reason for consultation: nstemi, chest pain Has provider been notified: Yes DS: Admitting Diagnosis Discharge Date 01/30/2024 Admitting Diagnosis Chest pain DS: Discharge Diagnosis Discharge Diagnosis Plan The patient presented to the emergency department for evaluation of left-sided chest pain with activity as detailed in HPI. Labs, imaging, EKG, and all reports were personally reviewed. He has exertional angina with elevated troponins and ischemic changes on EKG consistent with non STEMI. He received aspirin 324 mg in the ED and has been started on a heparin drip. He will be NPO after midnight for probable cardiac catheterization tomorrow. Start metoprolol tartrate 25 mg. Monitor blood pressures closely; may very well started antihypertensive depending on how he trends. Continue statin. Check iron studies, B12, and folate for evaluation of macrocytic anemia; he previously had a history of B12 deficiency. Continue tamsulosin and monitor p.r.n. bladder scan. Pt had heart cath next day showing . Left main: The left main trifurcates into LAD, Ramus and LCX. Eccentric disease noted in the distal left main. IVUS shows the distal left main MLA is 10mm2.? 2. Left anterior descending: The proximal-mid LAD is heavily calcified. The ostial LAD has significant obstructive hazy disease. 3. Ramus: Small caliber. No obstructive disease appreciated. 4. Left circumflex: The ostium of the LCX has angiographically moderate disease. Obtuse marginal branches have luminal irregularities. 5. Right coronary artery: The RCA is the dominant vessel. The RCA is a heavily calcified vessel. The proximal RCA has a calcific subtotal 99% stenosis. Pt will need to be transferred to [facility] for higher level of care for multivessel disease. and possible CABG Transfer Discharge Sum: Med Medications Active and Home Medications: Home Medications vitamin B complex 1 cap PO DAILY 05/23/23 [History Confirmed 01/29/24] rosuvastatin 10 mg tablet 10 mg PO QHS 01/29/24 [History Confirmed 01/29/24] tamsulosin 0.4 mg capsule 0.04 mg PO BID 01/29/24 [History Confirmed 01/29/24] Active Medications Aspirin (Aspirin 81 Mg Chewable Tablet) 81 mg PO DAILY@0800 [facility] Last Admin: 01/30/24 16:35 Dose: 81 mg Heparin Sodium (Porcine) (Heparin Sodium 5,000 Units/Ml Vial) 4,000 units IV PUSH PRN PRN PRN Reason: aPTT less than 55 seconds Heparin Sodium (Porcine) (Heparin Sodium 5,000 Units/Ml Vial) 3,500 units IV PUSH PRN PRN PRN Reason: aPTT 55 - 70 seconds Heparin Sodium/Dextrose (Heparin Sodium/D5w 100 Units/Ml) 25,000 units in 250 mls @ 10 mls/hr IV CONT .Q24H [facility]; Protocol Last Titration: 01/30/24 00:55 Dose: 1,000 units/hr, 10 mls/hr Sodium Chloride (Normal Saline Iv) 1,000 mls @ 125 mls/hr IV CONT .Q8H ONE Stop: 01/30/24 21:06 Last Admin: 01/30/24 16:35 Dose: 125 mls/hr Metoprolol Tartrate (Metoprolol Tartrate 25 Mg Tablet) 25 mg PO Q12HR [facility] Last Admin: 01/30/24 16:35 Dose: 25 mg Morphine Sulfate (Morphine Sulfate (*Crx) 2 Mg/Ml Inj) 2 mg IV PUSH Q5M PRN PRN Reason: Pain Rated 4-6 Nitroglycerin (Nitroglycerin Ointment 1 Inch Dose) 1 inch TRANSDERM Q6HR [facility] Last Admin: 01/30/24 15:18 Dose: Not Given Nitroglycerin (Nitroglycerin Sl 0.4 Mg Tablet) 0.4 mg SUBLINGUAL Q5MIN PRN PRN Reason: Chest Pain Rosuvastatin Calcium (Rosuvastatin 20 Mg Tablet) 40 mg PO QAM [facility] Last Admin: 01/30/24 16:39 Dose: Not Given Tamsulosin HCl (Tamsulosin Hcl 0.4 Mg Capsule) 0.4 mg PO BID [facility] Last Admin: 01/30/24 16:35 Dose: 0.4 mg Vitamin B Complex (Vitamin B Complex Capsule) 1 cap PO DAILY [facility] Last Admin: 01/30/24 16:35 Dose: 1 cap Transfer Discharge Sum: Hos
== END 2024-01-30 21:50 | disposition short-term general hospital (02) ==
LOC: ANHED 17:43 → ANHIMU 19:45
PROVIDERS: Emergency Medicine; Internal Medicine; Physician Assistant; Admitting Provider General Practice; Emergency Provider Emergency Medicine; PCP Family Medicine; Visit Provider Family Medicine
PROC: 4A023N7 Measurement of Cardiac Sampling and Pressure, Left Heart, Percutaneous Approach (ICD-10-PCS; CPT 93452; principal; 2024-01-30 10:30)
DX: I21.4 Non-ST elevation (NSTEMI) myocardial infarction (principal); I25.10 Atherosclerotic heart disease of native coronary artery without angina pectoris; R03.0 Elevated blood-pressure reading, without diagnosis of hypertension; E78.5 Hyperlipidemia, unspecified; D53.9 Nutritional anemia, unspecified; N40.0 Benign prostatic hyperplasia without lower urinary tract symptoms; E53.8 Deficiency of other specified B group vitamins; Z87.891 Personal history of nicotine dependence; Z79.899 Other long term (current) drug therapy
CPT/HCPCS: 36415; 51600; 71046; 80048; 80053; 80061; 82607; 82728; 82746; 83036; 83540; 83550; 83690; 83735; 84443; 84484; 85025; 85610; 85730; 92978; 93005; 93458; 96365; 96366; 96375; 99291; A9270; C1753; C1769; C1887; C1894; C8929; G0378; J0583; J1644; J2250; J2305; J3010; J7030; J7040; Q9957

== ENCOUNTER 2024-05-08 15:00 | Outpatient (RCR) | payer MEDICARE, SELFPAY ==
[2024-02-29 11:47] VITALS: PULSE 79
== END 2024-05-12 15:10 | disposition home or self-care (01) ==
LOC: ANHCPREHAB 15:00
PROVIDERS: PCP Family Medicine; Visit Provider Family Medicine
DX: Z95.1 Presence of aortocoronary bypass graft (principal)
CPT/HCPCS: 93798

== ENCOUNTER 2025-03-26 09:35 | Outpatient (CLI) | payer MEDICARE, SELFPAY ==
--- NOTE | ~2025-03-26 | MR_ITS ---
MRI of the brain Clinical History: Dementia Technique: Axial and sagittal T1-weighted images were acquired. These were followed by axial T2-weigh lowell, diffusion weighted, gradient, and FLAIR images. Findings: There is no acute infarct, intracranial hemorrhage, or mass lesion. There are mild chronic white matter changes in the periventricular white matter bilaterally. Ventricles and subarachnoid spaces are mildly dilated. Orbits are unremarkable. Paranasal sinuses and mastoid air cells are clear. Major intracranial flow voids are intact. Sagittal midline structures are intact. IMPRESSION: No acute abnormality. Minimal chronic microvascular ischemic change. Mild to moderate generalized atrophy. Reviewed, dictated and finalized at location . IMPRESSION: No acute abnormality. Minimal chronic microvascular ischemic change. Mild to moderate generalized atr ophy.
== END 2025-03-26 09:36 | disposition home or self-care (01) ==
LOC: GOSHIMG 09:35
PROVIDERS: PCP Family Medicine; Visit Provider Family Medicine
DX: F03.90 Unspecified dementia, unspecified severity, without behavioral disturbance, psychotic disturbance, mood disturbance, and anxiety (principal)
CPT/HCPCS: 70551

== ENCOUNTER 2025-05-15 12:49 | Outpatient (CLI) | payer MEDICARE, SELFPAY ==
--- NOTE | ~2025-05-15 | MR_ITS ---
EXAMINATION: MR lumbar spine wo con DATE: 05/15/2025 13:23 INDICATION: Spinal stenosis TECHNIQUE: Magnetic resonance imaging (MRI) of the lumbar spine was performed without intravenous contrast. Sequences included sagittal T2-weighted FSE, sagittal T2-weighted FS FSE, sagittal T1-weighted FSE, and axial T2-weighted FSE. COMPARISON: 03/22/2010 FINDINGS: 2 mm retrolisthesis L1 on L2, 4 mm retrolisthesis L2 on L3 and 3 mm retrolisthesis L5 on S1. Interval L2 laminectomy and partial L3 laminectomy. Vertebral body heights are normal. Marked interval progression of now severe disc height loss at L2-L3 with associated fibrovascular degenerative endplate changes. Additional T2 hyperintense fibrovascular degenerative endplate changes at the anterior inferior endplate of L1 and adjacent anterior superior endplate of L2 and along the posterior inferior endplates of L4 and L5. Additional progression in now moderate disc height loss at T11-T12 and T12-L1, mild to moderate disc height loss at L1-L2 and L3-L4, moderate disc height loss at L4-L5 and severe disc height loss at L5-S1. The conus medullaris terminates at L1. There is normal signal in the caudal spinal cord. The following disc levels are specifically discussed: T12-L1: Disc is mildly bulging. There is moderate bilateral facet joint osteoarthritis. There is minimal bilateral neural foraminal stenosis. There is mild central canal stenosis. L1-L2: Disc is bulging with annular fissure and central disc extrusion with disc material extending up to 1.8 cm cephalad to the level of the inferior endplate of L1. There is moderate bilateral facet joint osteoarthritis. There is mild bilateral neural foraminal stenosis. There is mild to moderate central canal stenosis. L2-L3: Disc is mildly bulging with annular fissure. The previously seen large disc extrusion is no longer visualized and has likely been resected. There is severe bilateral facet joint osteoarthritis. There is moderate bilateral neural foraminal stenosis. There is no central canal stenosis with interval posterior decompression. L3-L4: Disc is bulging with annular fissure. There is hypertrophy of the ligamentum flavum. There is moderate left and severe right facet joint osteoarthritis. There is moderate bilateral neural foraminal stenosis. There is mild central canal stenosis with narrowing of the left and right lateral reces ses. L4-L5: Disc is bulging with annular fissure. There is hypertrophy of the ligamentum flavum. There is moderate bilateral facet joint osteoarthritis. There is moderate right and mild left neural foraminal stenosis. There is moderate central canal stenosis. L5-S1: Disc is bulging with annular fissure. Left hemilaminotomy. There is severe right and mild left facet joint osteoarthritis. There is mild to moderate bilateral neural foraminal stenosis. There is mild central canal stenosis. IMPRESSION: 1. Interval L2 laminectomy and partial L3 laminectomy with likely resection of a prior large disc extrusion at L2-L3. 2. Interval progression of severe lumbar spondylosis. Reviewed, dictated and finalized at location A.
== END 2025-05-15 12:50 | disposition home or self-care (01) ==
LOC: MICIMG 12:51
PROVIDERS: PCP Family Medicine
DX: M96.1 Postlaminectomy syndrome, not elsewhere classified (principal); Z98.1 Arthrodesis status; M47.816 Spondylosis without myelopathy or radiculopathy, lumbar region
CPT/HCPCS: 72148